=== PATIENT | male | born 1975 | race Caucasian/White ===

== ENCOUNTER 2021-12-20 04:20 | Observation (INO) ==
[2021-12-20] MEDS ORDERED: *HR* Metoprolol 5 MG/5 ML VIAL IVP PRN (09:43)
[2021-12-20] MEDS ORDERED: Nitroglycerin 0.4 MG TAB.SUBL SL PRN (09:43)
[2021-12-20] MEDS ORDERED: Ondansetron 4 MG/2 ML VIAL IVP PRN (09:43)
[2021-12-20] MEDS ORDERED: Naloxone 0.4 MG/ML INJ IVP PRN (09:51)
[2021-12-20] MEDS ORDERED: GI Cocktail 40 ML EACH PO PRN (10:58)
[2021-12-20 12:48] LABS: Cholesterol 107 mg/dL (< 200); HDL Cholesterol 54 mg/dL (40-59); LDL Cholesterol,Calculated 47 mg/dL (< 100); Triglycerides 29 mg/dL (< 150); Troponin I < 0.03 ng/mL (< 0.04)
[2021-12-20] MEDS: *HR* Heparin 5,000 UNIT/ML VIAL SQ SCH ×2 (14:46→22:11)
[2021-12-20] MEDS: Sennosides/Docusate Sodium TABLET PO SCH (22:11)
[2021-12-21] MEDS: *HR* Heparin 5,000 UNIT/ML VIAL SQ SCH ×2 (05:14→14:13)
[2021-12-21 06:11] LABS: Hematocrit 41.4 % (37.5-50.1); Hemoglobin 13.8 g/dL (12.9-16.9); Mean Corpuscular HGB Conc 33.3 g/dL (31.6-35.5); Mean Corpuscular Hemoglobin 28.8 pg (28.0-33.3); Mean Corpuscular Volume 86.4 fL (83.0-100.0); Mean Platelet Volume 9.8 fL (9.4-12.4); Platelet Count 275 K/mcL (140-400); Red Blood Count 4.79 M/mcL (4.19-5.50); Red Cell Distribution Width 11.9 % (11.5-14.5); White Blood Count 6.2 K/mcL (4.3-11.1)
[2021-12-21] MEDS ORDERED: Regadenoson 0.4 MG/5 ML SYRINGE IVP ONE (06:26)
[2021-12-21 06:33] LABS: BUN/Creatinine Ratio 11 (6-26); Blood Urea Nitrogen 11 mg/dL (6-20); Carbon Dioxide 26 mEq/L (23-29); Chloride 109 mEq/L (98-107); Glucose 96 mg/dL (70-105); Magnesium 1.9 mg/dL (1.6-2.6); Osmolality,Calculated 291 (280-300); Sodium 141 mEq/L (136-145); eGFR For African Americans > 60 (> 60); eGFR For Non-African Americans > 60 (> 60)
[2021-12-21] MEDS ORDERED: Aspirin 81 MG TAB.CHEW PO SCH (09:00)
[2021-12-21] MEDS: Sennosides/Docusate Sodium TABLET PO SCH (09:10)
[2021-12-21 12:07] VITALS: BP 133/85; PULSE 75; TEMP 98.6; O2SAT 93
== END 2021-12-21 14:40 | disposition home or self-care (01) ==
LOC: 3BNU
PROVIDERS: ADMIT Nurse Practitioner; ATTEND Student in an Organized Health Care Education/Training Program